=== PATIENT | female | born 1950 | race Caucasian/White ===

== ENCOUNTER 2016-06-16 19:22 | Emergency (ER) | payer OTHER ==
[~2016-06-16] VITALS: Ht 160 cm; Wt 58.0 kg
[2016-06-16 19:24] VITALS: BP 134/86; PULSE 100; RESP 16; TEMP 98.5; O2SAT 95
[2016-06-16 22:58] VITALS: BP 159/84; PULSE 62; RESP 18; O2SAT 94
[2016-06-16] MEDS ORDERED: SODIUM CHLOR 0.9% 1000 ML INJ 1,000 ML IV SCH (23:01)
[2016-06-16] MEDS ORDERED: BENZ1CAP8 PO (23:05)
[2016-06-16] MEDS ORDERED: ADVA250A INH (23:05)
[2016-06-16] MEDS ORDERED: AMLO5TAB2 PO (23:05)
[2016-06-16] MEDS ORDERED: OMEP40CA2 PO (23:05)
[2016-06-16] MEDS ORDERED: TRAM50TA PO (23:05)
[2016-06-16] MEDS ORDERED: ATOR10TA15 PO (23:05)
[2016-06-16] MEDS ORDERED: DIPH2.5T14 PO (23:05)
[2016-06-16] MEDS ORDERED: FLUO10CA5 PO (23:05)
[2016-06-16] MEDS ORDERED: NITR1CAP36 PO (23:05)
[2016-06-16] MEDS ORDERED: NICO14DI T-DERMAL (23:05)
[2016-06-16 23:07] VITALS: RESP 16; O2SAT 96
[2016-06-16] MEDS ORDERED: SODIUM CHLORIDE 0.9% FLUSH 5 ML FLUSH IVF PRN (23:15)
[2016-06-16 23:42] LABS: AUTOMATED NEUTROPHIL # 5.8 TH/MM3 (1.8-7.7); BASOPHIL % 0.5 % (0.0-2.0); EOSINOPHIL # 0.1 TH/MM3 (0-0.4); EOSINOPHIL % 1.7 % (0.0-4.0); HEMATOCRIT 40.5 % (35.0-46.0); HEMO FLAGS DIFF FINAL; LYMPH % 13.1 % (9.0-44.0); LYMPHOCYTE # 1.1 TH/MM3 (1.0-4.8); MEAN CELL VOLUME 91.9 FL (80.0-100.0); MEAN CORPUSCULAR HEMOGLOBIN 31.8 PG (27.0-34.0); MEAN CORPUSCULAR HGB CONC 34.6 % (32.0-36.0); MONO % 16.8 % (0.0-8.0); NEUT % 67.9 % (16.0-70.0); PLATELET COUNT 312 TH/MM3 (150-450); WHITE BLOOD COUNT 8.5 TH/MM3 (4.0-11.0)
[2016-06-16 23:53] LABS: APTT (PATIENT) 27.5 SEC (24.3-30.1); INTERNATIONAL NORMALIZED RATIO 0.9 RATIO; PROTHROMBIN TIME - PATIENT 10.3 SEC (9.8-11.6)
[2016-06-17 00:09] LABS: ALKALINE PHOSPHATASE 71 U/L (45-117); TOTAL BILIRUBIN ADULT 0.5 MG/DL (0.2-1.0)
[2016-06-17 00:15] LABS: ALT (GPT) 22 U/L (10-53); ANION GAP 11 MEQ/L (5-15); AST (GOT) 17 U/L (15-37); BICARBONATE 25.1 MEQ/L (21.0-32.0); BLOOD UREA NITROGEN 12 MG/DL (7-18); CHLORIDE 94 MEQ/L (98-107); GLOMERULAR FILTRATION RATE 51 ML/MIN (>89); POTASSIUM 3.6 MEQ/L (3.5-5.1); SODIUM (NA) 130 MEQ/L (136-145)
[2016-06-17 00:26] LABS: BLOOD, URINE NEG (NEG); COMMENT (UR) CULT NOT INDICATED; CULTURE IF INDICATED CULT NOT INDICATED; GLUCOSE,URINE NEG (NEG); HYALINE CAST, URINE 26 /lpf (RARE); KETONE, URINE NEG (NEG); MUCUS URINE FEW /lpf (OCC); NITRITE,URINE NEG (NEG); SQUAMOUS EPITHELIAL CELL URINE <1 /hpf (0-5); URINE COLOR LIGHT-BROWN (YELLW/STRAW)
[2016-06-17 01:23] VITALS: BP 144/75; PULSE 74; RESP 18; TEMP 98.3; O2SAT 97
--- NOTE | 2016-06-17 01:28 | PD ---
HPI Chief Complaint: Complaint Time Seen by Provider: 22:55 Travel History International Travel<30 days: No Contact w/Intl Traveler<30days: No Traveled to known affect area: No History of Present Illness HPI Patient is a 65-year-old female presents emergency department for evaluation of decreased urine output. Patient is coming by her daughter. Patient underwent an aortic bypass which by her description sounds like an aortic bifemoral bypass approximately a month ago. Patient spent approximately 10 days and his halfway facility afterwards she felt well up to go home. She's been living with her daughter since then and they do have home health come by. Apparently the patient did have a similar episode where she had decreased urine output and she had to be hospitalized for an acute kidney failure. They called her doctor Dr. Patel who recommended they come to emergency department for labs. Patient's daughter is also concerned that the patient is really only drinking about 8 ounces of fluid a day. She's been fairly active after such an invasive abdominal surgery according to the daughter's description. No fevers no abdominal pain no pain in either lower extremity. PFSH Past Medical History Cardiovascular Problems: Yes (AORTIC BYPASS 2017, HTN ) COPD: Yes Hypertension: Yes Respiratory: Yes (COPD) Influenza Vaccination: Yes Past Surgical History Appendectomy: Yes Hysterectomy: Yes Thoracic Surgery: Yes (AORTIC BYPASS) Social History Alcohol Use: Yes (3 BEERS A DAY BEFORE AORTIC BYPASS BUT NO DRINKING SINCE) Tobacco Use: No (QUIT 05/17/16 PRIOR 1 PPD) Substance Use: No Allergies-Medications (Allergen,Severity, Reaction): Coded Allergies: No Known Allergies (Unverified , 06/16/16) Reported Meds & Prescriptions Reported Meds & Active Scripts Active Reported Tramadol (Tramadol HCl) 50 Mg Tab 50 Mg PO Q4H PRN Nitrofurantoin Macrocrystal 100 Mg Cap 100 Mg PO BID Nicotine Patch (Nicotine) 14 Mg/24 Hr Patch 14 Mg T-DERMAL DAILY Advair Diskus Inh (Fluticasone-Salmeterol Inh) 250-50 Mcg/Blist Aer 1 Puff INH BID Rinse mouth after use. Benzonatate 100 Mg Cap 100 Mg PO TID PRN Omeprazole 40 Mg Cap 40 Mg PO DAILY Diphenoxylate-Atropine 2.5-0.025 Mg Tab 1 Tab PO Q6H PRN Fluoxetine (Fluoxetine HCl) 10 Mg Cap 10 Mg PO DAILY Atorvastatin (Atorvastatin Calcium) 10 Mg Tab 10 Mg PO HS Amlodipine (Amlodipine Besylate) 5 Mg Tab 5 Mg PO DAILY Review of Systems Except as stated in HPI: all other systems reviewed are Neg Physical Exam Narrative GENERAL: Well-developed well-nourished no apparent distress SKIN: Warm and dry. HEAD: Atraumatic. Normocephalic. EYES: Pupils equal and round. No scleral icterus. No injection or drainage. ENT: No nasal bleeding or discharge. Mucous membranes pink and moist. NECK: Trachea midline. No JVD. CARDIOVASCULAR: Regular rate and rhythm. No murmur appreciated. RESPIRATORY: No accessory muscle use. Clear to auscultation. Breath sounds equal bilaterally. GASTROINTESTINAL: Abdomen soft, non-tender, nondistended. Hepatic and splenic margins not palpable. Midline abdominal scar healing well. MUSCULOSKELETAL: No obvious deformities. No clubbing. No cyanosis. No edema. NEUROLOGICAL: Awake and alert. No obvious cranial nerve deficits. Motor grossly within normal limits. Normal speech. PSYCHIATRIC: Appropriate mood and affect; insight and judgment normal. Data Data Last Documented VS Vital Signs Date Time Temp Pulse Resp B/P Pulse Ox O2 Delivery O2 Flow Rate FiO2 06/17/16 01:23 98.3 74 18 144/75 97 Room Air Orders Complete Blood Count With Diff (06/16/16 23:) Comprehensive Metabolic Panel (06/16/16 23:) Lipase (06/16/16 23:01) Prothrombin Time / Inr (Pt) (06/16/16 23:) Act Partial Throm Time (Ptt) (06/16/16 23:01) Urinalysis - C+S If Indicated (06/16/16 23:) Iv Access Insert/Monitor (06/16/16 23:) Ecg Monitoring (06/16/16 23:) Oximetry (06/16/16 23:) Sodium Chlor 0.9% 1000 Ml Inj (Ns 1000 M (06/16/16 23:) Sodium Chloride 0.9% Flush (Ns Flush) (06/16/16 23:15) Electrocardiogram (06/16/16 23:) C Diff Toxin Pcr (06/16/16 23:) Labs Laboratory Tests Test 06/16/16 06/16/16 23:10 23:15 Urine Color LIGHT-BROWN Urine Turbidity CLEAR Urine pH 6.0 Urine Specific [place] 1.020 Urine Protein 30 mg/dL Urine Glucose (UA) NEG mg/dL Urine Ketones NEG mg/dL Urine Occult Blood NEG Urine Nitrite NEG Urine Bilirubin NEG Urine Urobilinogen LESS THAN 2.0 MG/DL Urine Leukocyte Esterase NEG Urine RBC LESS THAN 1 /hpf Urine WBC 3 /hpf Urine Squamous Epithelial <1 /hpf Cells Urine Hyaline Casts 26 /lpf Urine Mucus FEW /lpf Microscopic Urinalysis Comment CULT NOT INDICATED White Blood Count 8.5 TH/MM3 Red Blood Count 4.40 MIL/MM3 Hemoglobin 14.0 GM/DL Hematocrit 40.5 % Mean Corpuscular Volume 91.9 FL Mean Corpuscular Hemoglobin 31.8 PG Mean Corpuscular Hemoglobin 34.6 % Concent Red Cell Distribution Width 13.0 % Platelet Count 312 TH/MM3 Mean Platelet Volume 7.4 FL Neutrophils (%) (Auto) 67.9 % Lymphocytes (%) (Auto) 13.1 % Monocytes (%) (Auto) 16.8 % Eosinophils (%) (Auto) 1.7 % Basophils (%) (Auto) 0.5 % Neutrophils # (Auto) 5.8 TH/MM3 Lymphocytes # (Auto) 1.1 TH/MM3 Monocytes # (Auto) 1.4 TH/MM3 Eosinophils # (Auto) 0.1 TH/MM3 Basophils # (Auto) 0.0 TH/MM3 CBC Comment DIFF FINAL Differential Comment Prothrombin Time 10.3 SEC Prothromb Time International 0.9 RATIO Ratio Activated Partial 27.5 SEC Thromboplast Time Sodium Level 130 MEQ/L Potassium Level 3.6 MEQ/L Chloride Level 94 MEQ/L Carbon Dioxide Level 25.1 MEQ/L Anion Gap 11 MEQ/L Blood Urea Nitrogen 12 MG/DL Creatinine 1.08 MG/DL Estimat Glomerular Filtration 51 ML/MIN Rate Random Glucose 114 MG/DL Calcium Level 8.6 MG/DL Total Bilirubin 0.5 MG/DL Aspartate Amino Transf 17 U/L (AST/SGOT) Alanine Aminotransferase 22 U/L (ALT/SGPT) Alkaline Phosphatase 71 U/L Total Protein 6.9 GM/DL Albumin 3.4 GM/DL Lipase 196 U/L [facility] Medical Decision Making Medical Screen Exam Complete: Yes Emergency Medical Condition: Yes Differential Diagnosis Acute kidney injury, mild dehydration, electrolyte abnormality, Narrative Course Patient was roomed in emergency department, she appears quite well. She was given a liter of normal saline and her urine output returned. Labs are reassuring creatinine is 1.08, sodium 1:30, chloride 94. CBC normal. Urine is concentrated without evidence of infection. Patient is also been complaining of some diarrhea as well as dark stools. She's not had any diarrhea while in the emergency department. 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 She does have some dark green stool which is Hemoccult negative. Discussed with patient and her daughter that she appears doing quite well after such an invasive surgery. I recommended that she continue her workup as an outpatient at this time and they are agreeable. Discussed with them proper daily by mouth fluids including 88 ounce glasses of water per day. Discussed calling Dr. Patel and they state they have appointment with him on Saturday 4 days from now. Discussed also need for follow-up with a primary care physician. Discussed return to ED criteria. She stable for discharge. Diagnosis Primary Impression: Dehydration, mild Additional Instructions: Follow-up with your surgeon and her primary care physician this week. Disposition: 01 DISCHARGE HOME Condition: Stable Mickey Linton MD Jun 17, 2016 01:28
--- NOTE | 2016-06-17 12:51 | EKG ---
Date Performed: 06/16/2016 Time Performed: 23:14:05 PTAGE: 65 years EKG: Sinus rhythm WITH OCCASIONAL SUPRAVENTRICULAR PREMATURE COMPLEXES POSSIBLE LEFT ATRIAL ENLARGEMENT BORDERLINE ECG NO PREVIOUS TRACING DOCTOR: Socrates Phan Interpretating Date/Time 06/17/2016 12:49:23
== END 2016-06-17 01:42 | disposition home or self-care (01) ==
LOC: NEPE 19:22
DX: E86.0 Dehydration (principal); I10 Essential (primary) hypertension; J44.9 Chronic obstructive pulmonary disease, unspecified; Z98.890 Other specified postprocedural states
CPT/HCPCS: 80053; 81001; 83690; 85025; 85610; 85730; 93005; 96360; 99283; J7030